=== PATIENT | female | born 1945 | race Caucasian/White ===

== ENCOUNTER 2017-02-07 11:36 | Inpatient (IN) | payer OTHER, MEDICARE ==
[~2017-02-07] VITALS: Ht 160 cm; Wt 64.5 kg
[2017-02-08] MEDS ORDERED: LEVO88TA2 PO (09:10)
[2017-02-08] MEDS ORDERED: GABA300C5 PO (09:10)
[2017-02-11] MEDS ORDERED: SUGAMMADEX SODIUM 200 MG/2 ML VIAL IV PUSH ONE ×2 (06:55)
[2017-02-11] MEDS ORDERED: ACETAMINOPHEN 1000 MG/100 ML VIAL IV ONE (06:56)
[2017-02-11] MEDS ORDERED: LACTATED RINGER'S 1000 ML IV PRN (07:00)
[2017-02-11] MEDS ORDERED: CHLORHEXIDINE GLUCONATE 2 % 1 PACK (2 CLOTHS) TOPICAL PRN (07:00)
[2017-02-11] MEDS ORDERED: ceFAZolin 2 GM PREMIX 50 ML IV SCH (07:00)
[2017-02-11] MEDS ORDERED: METOPROLOL TARTRATE 25 MG TAB PO PRN (07:00)
[2017-02-11] MEDS ORDERED: POVIDONE IODINE 5% (ANTISEPSIS KIT) 4 APPLICATIONS EACH NARE PRN (07:00)
[2017-02-11] MEDS ORDERED: SODIUM CHLORID 0.9% 500 ML IV PRN (07:00)
[2017-02-11] MEDS ORDERED: INSULIN HUMAN REGULAR 1,000 UNITS/10 ML VIAL SQ PRN (07:00)
[2017-02-11] MEDS ORDERED: DEXT 5%-NACL 0.9% 1000 ML INJ 1,000 ML IV SCH (07:00)
[2017-02-11] MEDS ORDERED: NICO14DI T-DERMAL (07:09)
[2017-02-11 07:15] VITALS: BP 114/72; PULSE 90; RESP 16; TEMP 98.6; O2SAT 96
--- NOTE | 2017-02-11 07:49 | PD.HP.UP ---
H&P Update Note The Pre-Admit History and Physical Examination regarding the above named patient was reviewed (including, but not limited to, vital signs, heart, lungs, co-morbid conditions), and upon re-examination it is noted that: the patient's condition has not significantly changed since the last examination. Melissa Linton MD Feb 11, 2017 07:49
[2017-02-11] MEDS ORDERED: fentaNYL CITRATE 250 MCG/5 ML AMP ONE (07:59)
[2017-02-11] MEDS ORDERED: ceFAZolin 2 GM PREMIX 50 ML ONE (07:59)
[2017-02-11] MEDS ORDERED: MIDAZOLAM HCL 2 MG/2 ML VIAL ONE (07:59)
--- NOTE | 2017-02-11 09:25 | PD.OP ---
Operative Report Date of Surgery: Feb 11, 2017 Preoperative Diagnosis: Diverticulitis with colovaginal fistula Postoperative Diagnosis: Diverticulitis with colovaginal fistula and small bladder tumor 0.5 cm in diameter Procedure: Cystoscopy with bilateral ureteral catheter placement and bladder biopsy with fulguration Anesthesia: KAI Surgeon: Edi Hughes Ophthalmologist(s): None Resident Surgeon: None Operation and Findings: 71-year-old female admitted to undergo robotic-assisted laparoscopic colectomy with repair of colovaginal fistula. Request for made for bilateral ureteral catheter insertion. Patient is brought to the operating room and identified by myself as Dina Rehman. She's placed the dorsal lithotomy position, prepped and draped in usual sterile fashion, received preprocedure antibiotics, and general endotracheal tube anesthesia was administered. 22 Pakistani scope was inserted in the bladder and Rico cystoscopy showed a small irregular bladder mass on the posterior wall inferiorly. It was approximately 0.5 cm in diameter. A cold cut biopsy of the area was taken and sent to pathology and the area was then fulgurated. Left ureteral orifice was identified for vaginal catheter was inserted in the left ureteral orifice and it slid up without difficulty. This was repeated on the right side without difficulty. A 16 Pakistani Whitten was inserted into the bladder and the catheters were attached to the Whitten. She tolerated the procedure well. Edi Hughes DO Feb 11, 2017 09:25
[2017-02-11] MEDS ORDERED: ePHEDrine/NS 25 MG/5 ML SYR IV ONE (12:00)
[2017-02-11] MEDS ORDERED: NEOSTIGMINE 3 MG/3 ML SYR IV ONE (12:00)
[2017-02-11] MEDS ORDERED: PHENYLEPH/NS 1000 MCG/10 ML SYR IV ONE (12:00)
[2017-02-11] MEDS ORDERED: PROPOFOL 200 MG/20 ML AMP IV ONE (12:00)
[2017-02-11] MEDS ORDERED: LACTATED RINGER'S 1000 ML INJ 2,000 ML IV ONE (12:00)
[2017-02-11] MEDS ORDERED: ONDANSETRON HCL 4 MG/2 ML VIAL IV PUSH ONE (12:00)
[2017-02-11] MEDS ORDERED: ceFAZolin INJ 1,000 MG VIAL IV ONE (13:00)
[2017-02-11] MEDS ORDERED: NALOXONE HCL 0.4 MG/ML AMP IV PRN (14:15)
[2017-02-11] MEDS ORDERED: ACETAMINOPHEN/HYDROcodone 325 MG/5 MG TAB PO PRN ×2 (14:15→15:00)
[2017-02-11] MEDS ORDERED: POTASSIUM CHLOR 20 MEQ PREMIX 100 ML IV PRN (14:15)
[2017-02-11] MEDS ORDERED: Post-op Orders (for Pharmacy) MISC XX ONE (14:15)
[2017-02-11] MEDS ORDERED: POTASSIUM CHLOR 40 MEQ PREMIX 100 ML IV PRN (14:15)
[2017-02-11] MEDS ORDERED: ACETAMINOPHEN 325 MG TAB PO PRN (14:15)
[2017-02-11] MEDS ORDERED: DO NOT ADM ANY ANTICOAGULANT DRUGS PRN (14:43)
[2017-02-11] MEDS: KETOROLAC TROMETHAMINE 30 MG/ML (IVP) VIAL IVP SCH ×2 (15:00→21:46)
[2017-02-11] MEDS ORDERED: diphenhydrAMINE HCL 50 MG/ML VIAL IV PRN (15:00)
[2017-02-11] MEDS ORDERED: ENALAPRILAT 1.25 MG/ML VIAL IV PRN (15:00)
[2017-02-11] MEDS ORDERED: BENZOCAINE 6 MG/MENTHOL 10 MG LOZENGE BUCCAL PRN (15:00)
[2017-02-11] MEDS ORDERED: SODIUM CHLORIDE 0.9% FLUSH 5 ML FLUSH IVF PRN (15:00)
[2017-02-11] MEDS: SODIUM CHLORIDE 0.9% FLUSH 5 ML FLUSH IVF SCH ×2 (15:00→21:00)
[2017-02-11] MEDS ORDERED: ENALAPRILAT 2.5 MG/2 ML VIAL IV PRN (15:00)
[2017-02-11] MEDS ORDERED: *morphine SULFATE 8 MG/ML PERIprocedure ONLY ONE (15:04)
[2017-02-11 15:15] LABS: AUTOMATED NEUTROPHIL # 13.6 TH/MM3 (1.8-7.7); BASOPHIL % 0.2 % (0.0-2.0); HEMATOCRIT 39.9 % (35.0-46.0); HEMO FLAGS DIFF FINAL; LYMPH % 2.3 % (9.0-44.0); LYMPHOCYTE # 0.3 TH/MM3 (1.0-4.8); MEAN CELL VOLUME 91.9 FL (80.0-100.0); MEAN CORPUSCULAR HEMOGLOBIN 31.1 PG (27.0-34.0); MEAN CORPUSCULAR HGB CONC 33.8 % (32.0-36.0); NEUT % 94.5 % (16.0-70.0); PLATELET COUNT 233 TH/MM3 (150-450); RED BLOOD COUNT 4.35 MIL/MM3 (4.00-5.30); RED CELL DISTRIBUTION WIDTH 13.9 % (11.6-17.2); WHITE BLOOD COUNT 14.4 TH/MM3 (4.0-11.0)
[2017-02-11] MEDS: D5-NS + KCL 20 MEQ INJ 1,000 ML IV SCH ×2 (15:15→21:52)
[2017-02-11] MEDS: MORPHINE SULFATE 30 MG/30 ML PCA IV SCH (15:32)
[2017-02-11] MEDS: PANTOPRAZOLE SODIUM 40 MG VIAL IVP SCH (15:45)
[2017-02-11] MEDS: metroNIDAZOLE 500 MG INJ 100 ML IV SCH ×2 (15:45→23:52)
[2017-02-11] MEDS: NICOTINE 14 MG/24 HR PATCH T-DERMAL SCH (16:00)
[2017-02-11] MEDS: GABAPENTIN 300 MG CAP PO SCH (18:00)
[2017-02-11] MEDS ORDERED: DIMETHICONE/OXYBENZONE/PADMIATE LIP BALM 4.25 GM TOPICAL ONE (18:01)
[2017-02-11] MEDS: REMOVE OLD NICODERM (NICOTINE) PATCH T-DERMAL SCH (21:00)
[2017-02-11 21:12] VITALS: PULSE 85
[2017-02-11 21:30] VITALS: BP 110/73; PULSE 87; RESP 20; TEMP 97.3; O2SAT 93
[2017-02-11] MEDS: PCA - TOTAL MG MORPHINE DELIVERED PER SHIFT SCH (21:50)
[2017-02-11 22:00] VITALS: PULSE 80
[2017-02-11 23:00] VITALS: PULSE 81
[2017-02-11 23:30] VITALS: BP 105/56; PULSE 93; RESP 16; O2SAT 95
[2017-02-12] VITALS (16 sets, daily range): BP systolic 95–144; BP diastolic 48–76; PULSE 72–93; RESP 17–19; TEMP 97.3–98.5; O2SAT 91–97
[2017-02-12] MEDS: D5-NS + KCL 20 MEQ INJ 1,000 ML IV SCH ×2 (04:30→14:11)
[2017-02-12] MEDS: PCA - TOTAL MG MORPHINE DELIVERED PER SHIFT SCH ×3 (06:00→22:00)
[2017-02-12] MEDS: LEVOTHYROXINE SODIUM 88 MCG TAB PO SCH (06:06)
[2017-02-12 07:58] LABS: AUTOMATED NEUTROPHIL # 8.2 TH/MM3 (1.8-7.7); BASOPHIL % 0.2 % (0.0-2.0); EOSINOPHIL % 0.1 % (0.0-4.0); HEMATOCRIT 37.4 % (35.0-46.0); HEMO FLAGS DIFF FINAL; LYMPH % 11.5 % (9.0-44.0); LYMPHOCYTE # 1.2 TH/MM3 (1.0-4.8); MEAN CELL VOLUME 94.2 FL (80.0-100.0); MEAN CORPUSCULAR HEMOGLOBIN 31.2 PG (27.0-34.0); MEAN CORPUSCULAR HGB CONC 33.1 % (32.0-36.0); MONO % 7.2 % (0.0-8.0); PLATELET COUNT 217 TH/MM3 (150-450); RED BLOOD COUNT 3.97 MIL/MM3 (4.00-5.30); WHITE BLOOD COUNT 10.1 TH/MM3 (4.0-11.0)
[2017-02-12 08:18] LABS: BICARBONATE 25.6 MEQ/L (21.0-32.0); POTASSIUM 4.5 MEQ/L (3.5-5.1)
--- NOTE | 2017-02-12 08:57 | HHI.PR ---
Subjective Remarks C/R Surg POD #1 afebrile, VSS UO adeq c/o pain Objective - Vital Signs Date Time Temp Pulse Resp B/P Pulse Ox O2 Delivery O2 Flow Rate FiO2 02/12/17 06:00 74 02/12/17 06:00 18 02/12/17 05:31 96 Nasal Cannula 2.00 02/12/17 04:35 98.1 95/48 Result Diagram: 02/12/17 0712 02/12/17 0712 Objective Remarks PE alert Abd - soft, stoma pink/dark, wounds dry A/P Assessment and Plan Imp: stable post-op OOB decr IVF tx to floor Bebo Wells MD Feb 12, 2017 08:57
[2017-02-12] MEDS: SODIUM CHLORIDE 0.9% FLUSH 5 ML FLUSH IVF SCH ×2 (09:00→19:52)
[2017-02-12] MEDS: GABAPENTIN 300 MG CAP PO SCH ×3 (09:00→17:06)
[2017-02-12] MEDS: PANTOPRAZOLE SODIUM 40 MG VIAL IVP SCH (10:39)
[2017-02-12] MEDS: metroNIDAZOLE 500 MG INJ 100 ML IV SCH (10:40)
[2017-02-12] MEDS: NICOTINE 14 MG/24 HR PATCH T-DERMAL SCH (10:40)
[2017-02-12] MEDS: ONDANSETRON HCL 4 MG/2 ML VIAL IV PRN (10:48)
[2017-02-12] MEDS: HEPARIN SODIUM - SQ 10,000 UNITS/ML VIAL SQ SCH (14:10)
[2017-02-12] MEDS: MORPHINE SULFATE 30 MG/30 ML PCA IV SCH (19:52)
[2017-02-12] MEDS: REMOVE OLD NICODERM (NICOTINE) PATCH T-DERMAL SCH (19:53)
[2017-02-13 00:31] VITALS: BP 148/65; PULSE 93; RESP 18; TEMP 98.8; O2SAT 93
[2017-02-13] MEDS: D5-NS + KCL 20 MEQ INJ 1,000 ML IV SCH ×2 (01:39→17:23)
[2017-02-13] MEDS: HEPARIN SODIUM - SQ 10,000 UNITS/ML VIAL SQ SCH ×2 (01:39→17:23)
[2017-02-13 04:27] VITALS: BP 152/60; PULSE 84; RESP 18; TEMP 98.6; O2SAT 93
[2017-02-13] MEDS: LEVOTHYROXINE SODIUM 88 MCG TAB PO SCH (04:54)
[2017-02-13] MEDS: ONDANSETRON HCL 4 MG/2 ML VIAL IV PRN ×2 (04:57→11:45)
[2017-02-13] MEDS: PCA - TOTAL MG MORPHINE DELIVERED PER SHIFT SCH (05:44)
[2017-02-13 08:00] VITALS: BP 152/71; PULSE 105; RESP 17; TEMP 97.7; O2SAT 90
[2017-02-13] MEDS: SODIUM CHLORIDE 0.9% FLUSH 5 ML FLUSH IVF SCH ×2 (09:00→20:17)
[2017-02-13] MEDS: GABAPENTIN 300 MG CAP PO SCH ×3 (09:00→17:23)
[2017-02-13] MEDS: NICOTINE 14 MG/24 HR PATCH T-DERMAL SCH (09:22)
[2017-02-13] MEDS: PANTOPRAZOLE SODIUM 40 MG VIAL IVP SCH (09:22)
--- NOTE | 2017-02-13 09:29 | HHI.PR ---
Subjective Remarks C/R Surg POD #2 afebrile, VSS UO adeq c/o pain/nausea Objective - Vital Signs Date Time Temp Pulse Resp B/P Pulse Ox O2 Delivery O2 Flow Rate FiO2 02/13/17 08:00 97.7 105 17 152/71 90 02/12/17 08:21 Nasal Cannula 2.50 Result Diagram: 02/12/17 0712 02/12/17 0712 Objective Remarks PE alert Abd - soft, stoma pink, wounds dry min tympany A/P Assessment and Plan Imp: OOB decr IVF dc morphine Bebo Wells MD Feb 13, 2017 09:29
[2017-02-13] MEDS: ACETAMINOPHEN 1000 MG/100 ML VIAL IV SCH ×3 (11:40→22:44)
[2017-02-13 12:00] VITALS: BP 172/70; PULSE 92; RESP 17; TEMP 97.9; O2SAT 90
[2017-02-13 15:56] LABS: BASOPHIL % 0.3 % (0.0-2.0); EOSINOPHIL # 0.1 TH/MM3 (0-0.4); EOSINOPHIL % 1.3 % (0.0-4.0); HEMATOCRIT 39.1 % (35.0-46.0); HEMO FLAGS DIFF FINAL; LYMPH % 14.9 % (9.0-44.0); LYMPHOCYTE # 1.3 TH/MM3 (1.0-4.8); MEAN CELL VOLUME 93.1 FL (80.0-100.0); MEAN CORPUSCULAR HEMOGLOBIN 31.1 PG (27.0-34.0); MEAN CORPUSCULAR HGB CONC 33.4 % (32.0-36.0); MONO % 6.2 % (0.0-8.0); NEUT % 77.3 % (16.0-70.0); PLATELET COUNT 234 TH/MM3 (150-450); RED CELL DISTRIBUTION WIDTH 13.8 % (11.6-17.2); WHITE BLOOD COUNT 9.1 TH/MM3 (4.0-11.0)
[2017-02-13 16:00] VITALS: BP 152/72; PULSE 96; RESP 17; TEMP 97.3; O2SAT 94
[2017-02-13 16:25] LABS: BICARBONATE 27.5 MEQ/L (21.0-32.0); POTASSIUM 4.5 MEQ/L (3.5-5.1)
[2017-02-13] MEDS ORDERED: ZOLPIDEM TARTRATE 5 MG TAB PO PRN (18:00)
[2017-02-13 20:00] VITALS: BP 167/79; PULSE 90; RESP 20; TEMP 98; O2SAT 96
[2017-02-13] MEDS: REMOVE OLD NICODERM (NICOTINE) PATCH T-DERMAL SCH (20:17)
[2017-02-14] VITALS: BP 140/67; PULSE 102; RESP 20; TEMP 98.3; O2SAT 90
[2017-02-14] MEDS: HEPARIN SODIUM - SQ 10,000 UNITS/ML VIAL SQ SCH ×2 (01:27→12:18)
[2017-02-14] MEDS: LEVOTHYROXINE SODIUM 88 MCG TAB PO SCH (04:11)
[2017-02-14] MEDS: ACETAMINOPHEN 1000 MG/100 ML VIAL IV SCH ×2 (04:12→08:00)
[2017-02-14 07:19] LABS: AUTOMATED NEUTROPHIL # 7.8 TH/MM3 (1.8-7.7); BASOPHIL % 0.3 % (0.0-2.0); EOSINOPHIL # 0.2 TH/MM3 (0-0.4); EOSINOPHIL % 1.8 % (0.0-4.0); HEMATOCRIT 40.9 % (35.0-46.0); HEMO FLAGS DIFF FINAL; LYMPH % 11.1 % (9.0-44.0); LYMPHOCYTE # 1.1 TH/MM3 (1.0-4.8); MEAN CELL VOLUME 92.3 FL (80.0-100.0); MEAN CORPUSCULAR HEMOGLOBIN 30.9 PG (27.0-34.0); MEAN CORPUSCULAR HGB CONC 33.4 % (32.0-36.0); MONO % 6.2 % (0.0-8.0); NEUT % 80.6 % (16.0-70.0); PLATELET COUNT 228 TH/MM3 (150-450); RED BLOOD COUNT 4.43 MIL/MM3 (4.00-5.30); RED CELL DISTRIBUTION WIDTH 13.8 % (11.6-17.2); WHITE BLOOD COUNT 9.7 TH/MM3 (4.0-11.0)
[2017-02-14 07:51] LABS: BICARBONATE 26.4 MEQ/L (21.0-32.0); POTASSIUM 4.1 MEQ/L (3.5-5.1)
[2017-02-14 08:00] VITALS: BP 145/79; PULSE 93; RESP 18; TEMP 97.5; O2SAT 93
[2017-02-14] MEDS: PANTOPRAZOLE SODIUM 40 MG VIAL IVP SCH (08:00)
[2017-02-14] MEDS: GABAPENTIN 300 MG CAP PO SCH ×2 (08:00→12:17)
[2017-02-14] MEDS: NICOTINE 14 MG/24 HR PATCH T-DERMAL SCH (08:00)
[2017-02-14] MEDS: D5-NS + KCL 20 MEQ INJ 1,000 ML IV SCH (08:01)
[2017-02-14] MEDS: SODIUM CHLORIDE 0.9% FLUSH 5 ML FLUSH IVF SCH (08:01)
[2017-02-14 08:17] VITALS: O2SAT 92
[2017-02-14 12:00] VITALS: BP 143/71; PULSE 88; RESP 18; TEMP 96.7; O2SAT 97
--- NOTE | 2017-02-14 14:46 | HHI.PR ---
Subjective Remarks POD#3 s/p robotic lar, ayush, diversion Comfortable, wants to go home Objective Vital Signs Date Time Temp Pulse Resp B/P Pulse Ox O2 Delivery O2 Flow Rate FiO2 02/14/17 12:00 96.7 88 18 143/71 97 02/14/17 08:17 92 21 02/14/17 08:00 97.5 93 18 145/79 93 02/14/17 00:00 98.3 102 20 140/67 90 02/13/17 23:14 18 02/13/17 20:00 98.0 90 20 167/79 96 02/13/17 20:00 96 02/13/17 16:00 97.3 96 17 152/72 94 I/O 02/13/17 02/13/17 02/13/17 02/14/17 02/14/17 02/14/17 07:00 15:00 23:00 07:00 15:00 23:00 Intake Total 682 ml 828 ml 737 ml 749 ml 487 ml Output Total 600 ml 1550 ml 2125 ml 300 ml 50 ml Balance 82 ml -722 ml -1388 ml 449 ml 437 ml Intake Oral 240 ml 320 ml 240 ml IV Total 682 ml 588 ml 417 ml 509 ml 487 ml Output Urine Total 600 ml 1550 ml 2075 ml Stool Total 50 ml 300 ml 50 ml # Voids 0 3 # Bowel Movements 0 Result Diagram: 02/14/17 0630 02/14/17 0636 Objective Remarks Abdomen soft, nondistended, mildly tender Stoma pink, incisions clean Assessment and Plan Assessment and Plan Doing well Can go home with [facility] for new stoma Followup with me 3 weeks. Melissa Linton MD Feb 14, 2017 14:46
--- NOTE | 2017-02-14 14:49 | HHI.FF ---
Face to Face Verification Diagnosis: (1) Diverticulitis Home Health Nursing Order: Medical education Wound care and dressing changes I have seen patient Marbella Rehman on 02/14/17. My clinical findings support the need for the requested home health care services because: Deconditioned w/ increased weakness Limited ability to care for self I certify that my clinical findings support that this patient is homebound because: Post-op weakness Melissa Linton MD Feb 14, 2017 14:49
[2017-02-14] MEDS ORDERED: HYDR-3516 PO (14:50)
[2017-02-14 15:00] VITALS: BP 146/75; PULSE 87; RESP 20; TEMP 97; O2SAT 96
--- NOTE | 2017-02-14 18:18 | PD.WCN.NOT ---
Wound Consult Description: Consult placed per Dr Linton for NEW OSTOMY TEACHING of RLQ ileostomy Communicated with: ANTWON Wise Dr Recommendation: Follow up with [facility] after discharge for further Ostomy teaching. Patient had one teaching session approximately 1 hour, with superintendent transportation today prior to discharge. Additional Information: Patient seen on for NEW OSTOMY TEACHING. Patient was sitting up on side of bed when entering room getting ready for discharge with friend at bedside. Appliance was changed by floor RN today. Pouch was removed from lower right abdominal quadrant to visualize ileostomy. Ostomy Type: Ileostomy Date of Surgery: Feb 11, 2017 Complete: Starter kit, Education materials Educated patient on: #1 Drinking plenty of fluids with ileostomy. #2 When to change the appliance and not to leave in place longer than 7 days. #3 What kind of effluent (currently green soft/liquid) she will have coming from her lumen that is noticed at 6 o'clock. #4 How to change pouch and barrier. #5 How to cleanse skin. #6 When and how to empty pouch. #7 Patient demonstrated how to open and close pouch, and how to remove pouch from barrier. #8 Education was also given on the intestinal system, ie. foods easily digested , foods difficult for digestion, and dehydration symptoms. #9 "What to expect after ileostomy surgery" booklet was shown to her for reinforcement of information given today, that she states will read later tonight or tomorrow. #10 Patient stoma was measured at 1 1/4 oval shaped and appliances were ordered for her to go home today in size 1 3/4 moldable. Additional information Appliance was removed from patients right lower quadrant of her abdomen using adhesive remover wipes, for assessment and teaching of ileostomy, prior to discharge today. Stoma was noted to be oval, red, shiny, moist, moderately protruding, budded, lumen @ 6o'clock, functioning with green soft/liquidy effluent and no odor. Mucocutaneous junction is noted with sutures in place otherwise unremarkable. Peristomal skin was assessed. No open areas noted to peristomal skin that was cleansed with water only and allowed to air dry before placing new 2 piece barrier and pouch (taken from ileostomy kit) to patient lower right abdomen. Pouch was then attached at the bottom of the flange with patient fastening the sides and top to close. Patient closed the open ended pouch and education was given as described above. Ileostomy kit was given to patient. 4 ostomy supplies ordered for patient to go home with her size appliance of 1 3/4. Cydney Rosas [facility] Feb 14, 2017 18:18
--- NOTE | 2017-02-15 09:27 | MP ---
cc: JENNIFER RASCON M.D., JOANNE D. M.D. DATE OF SURGERY February 11, 2017 PREOPERATIVE DIAGNOSIS 1. Diverticulitis. 2. Colovaginal fistula. POSTOPERATIVE DIAGNOSIS 1. Diverticulitis. 2. Colovaginal fistula. PROCEDURE 1. Robotic/laparoscopic extensive lysis of adhesions. 2. Robotic low anterior resection. 3. Small bowel resection. 4. Robotic assisted diverting ileostomy. SURGEON Royer [employer]PER[employer] CHASSIS Moe ANESTHESIA General per ET tube. ESTIMATED BLOOD LOSS 150 cc. OPERATIVE INDICATIONS The patient is a 71-year-old female with a history of diverticulitis with colovaginal fistula. OPERATIVE FINDINGS There were some small adhesions of the omentum to the descending colon and wrapped around in the left the abdominal perineal wall. In addition, the patient had adhesions of the small bowel down to the right ovary, the posterior uterus and down to the area of the diverticular phlegmon. She had a large diverticular phlegmon in the mid to lower sigmoid which was folded over just below the rectosigmoid junction where ultimately it was discovered that she actually had a second fistula into the phlegmon at this area. Both ovaries and uterus looked normal. Her liver was visually normal. I did not visualize the gallbladder. OPERATIVE COURSE The patient was brought to the operating room, placed in supine position. After induction of general anesthesia the patient was placed in Ru stirrups and all bony prominences were carefully padded. The skin of the anterior abdominal wall as well as the perineal area was then prepped and draped in usual sterile fashion. Dr. Hughes then came in and performed cystoscopy with placement of bilateral ureteral catheters. Please see his operative note for details. The site was then chosen for the camera being located in the actual umbilical previous incision due to the patient's fairly small body habitus. The #1 port was placed just inside the right anterior superior iliac spine and the assist port was placed just underneath the right costal margin equal distance from the #1 and the camera port. The #5 assist port was placed first under direct vision using a laparoscope. CO2 insufflation was then undertaken and a brief abdominal survey was performed with nothing noted that would preclude the laparoscopic approach. The #1 and the camera port were then placed under direct vision using the laparoscope. The patient's head down and the omentum was pulled up and out of the pelvis. She was noted to have adhesions of the omentum to the left side wall but we continued with our dissection currently. The patient was then noted to have adhesions of the small bowel down into the pelvis but I felt that this could be best dealt with with the robot. The adhesions of the omentum covering the descending colon were then carefully dissected free using electrocautery until I had good visualization of the descending colon. At that point I evaluated and I felt I had adequate length to perform a tension-free anastomosis, so the #2 trocar was placed in the left midclavicular line just above the umbilicus and the #3 port was placed in the left anterior axillary line just below the umbilicus. The robot was then docked and attention was first turned to the small bowel and the pelvis. This was found during dissection to be densely adherent to the right tube and ovary and two different areas of the mid ileum were densely adherent. These were slowly and painstakingly dissected free using electrocautery until we eventually were able to retrieve these out of the pelvis and note was made to check this later though as there was an area on the small bowel that was quite battered. Tube and ovary looked intact and healthy and hemostasis was obtained with electrocautery. Once we were able to retrieve the small bowel up and out of the pelvis it was noted that this area was kind of where the diverticular phlegmon started as well posteriorly. The rectosigmoid colon was retracted down to the left and the perineum window was made posterior to the inferior mesenteric vessels and dissection was continued in this plane till the left ureter was clearly identified and swept away from the specimen. A window was made around the vessels and a white loaded echelon endo stapler was placed across the vessels. This was closed, held for 30 seconds, fired and removed. A small amount of bleeding on the proximal stump was controlled using electrocautery. Dissection then continued in the posterior plane down to the level of the mid rectum and somewhat up to the right and left lateral sides. The lateral peritoneal attachments of the distal descending colon, sigmoid colon were then dissected free until we met our previous dissection. Dissection then continued down into the pelvis and the patient was noted to have the sigmoid colon folded over and adherent down very low on the rectum. Multiple and extensive adhesiolysis was performed in the pelvis, eventually being able to straighten out the colon and finding the phlegmon area with the apparent fistula in the mid to distal sigmoid; however, on further inspection it was noted that just at the level of the rectosigmoid junction or just below there was another area of inflammatory change on the bowel which was quite concerning. I elected to proceed with a more distal resection. The vagina was slowly and painstakingly dissected off the anterior surface of the bowel until we got down to soft healthy bowel with no with inflammatory changes. The mesentery of this was then divided using harmonic scalpel and a blue load echelon endo stapler was placed across the bowel at this level. A second load was necessary to transect the bowel. A 29 EEA stapler was then brought onto the field, placed into the rectum and advanced to the rectal stump without difficulty. It was noted to be fairly low resection margin. Small amount of fibrofatty tissue was cleared of the bowel circumferentially to allow for better anastomosis. Attention was then turned proximally. The distal descending colon was carefully dissected free from the lateral wall and additional dissection was continued posteriorly freeing it from the posterior peritoneum. This appeared fine and I brought it down and it seemed to come nicely down to the rectal stump with plenty of length. All dissection beds were examined. There was noted to still be some oozing down the pelvis particularly on the right side around the right tube and ovary but this was finally controlled using electrocautery. The area of concern on the small bowel was then grasped a locking grasper so that we could located it more easily once we opened. The robot was then undocked. A 6 to 7 cm transverse incision was made along the midportion of the patient's previous abdominoplasty scar. Using electrocautery dissection was carried down to the fascia of the anterior abdominal wall which was split the length of the skin incision. The posterior fascia closed. Perineum was then divided as well. A wound protector was then placed and initially we addressed the small bowel. This was grasped, pulled up and out of the incision and after evaluation I did feel that the bowel was compromised to the point where resection would be prudent. The mesentery was cleared proximally and distally and above the level of the proposed resection. The LUIZA stapler blue load was placed across the bowel proximal and distally and the intervening mesentery was serially divided and ligated using 0 Vicryl ties. The antimesenteric corners of the staple line were then removed. One limb of the staple was placed down each limb of the bowel. This was closed along the antimesenteric border, fired and removed. The resulting enterotomy was closed transversely using TX 60 stapling device. Simple stay suture was placed at the distal end of the anastomosis using 3-0 Vicryl and the mesenteric defect was closed in a running fashion using 3-0 Vicryl and the remainder of the small bowel was run and showed no significant abnormalities. The bowel was replaced back into the peritoneal cavity. The proximal stapled end of the colon was then grasped and pulled up and out through the incision and a site was chosen for proximal division of the bowel just above the area of the inflammatory changes where the bowel was soft and appeared healthy. A window in the mesentery was made and a pursestring stapling device was placed across the bowel at this level. The distal bowel was cleared with Yvon clamp, the bowel was amputated and the intervening mesentery was then serially divided and ligated using 0 Vicryl ties. Specimen was taken to back table, it was later opened and the area of possibly two different fistula openings were confirmed. The anvil from the 29 EEA was then placed into the cut end of the bowel and the previously placed pursestring suture was then secured. This was then reduced back into the peritoneal cavity. The posterior fascia of the incision was then closed in running fashion using #1 PDS and the anterior fascia was closed in a running fashion using #1 PDS. A OpSite was placed over the incision and CO2 insufflation was then resumed. The 29 EEA stapler was advanced through the anus and up to the rectal stump. The spike was advanced just anterior to the staple line. The anvil was to the spike and being careful that the bowel was not twisted the stapler was closed, held for 30 seconds, fired and removed. At this point the bowel was noted to be just a little bit more tension than I would like and so the lateral peritoneal attachments were dissected further up the descending colon and posteriorly until we had much more tension-free anastomosis. Saline was placed into the pelvis and air was placed into the anus until tension was noted on the anastomosis. There were noted to be a few just tiny bubbles. However, with the low level of the anastomosis I had already considered a proximal diversion and this indefinitely made this more appealing. The air was desufflated to the extent possible and the saline was suctioned out of the pelvis. A site was then chosen for proximal diverting just above the previous resection. Two laparoscopic clips were placed distally. One laparoscopic clip was placed proximally and the bowel was grasped with a locking grasper. The fascia at the 10, 12 trocar sites were then closed using 0 Vicryl suture and the crossbow device. These sutures were placed but not tied until CO2 insufflation was removed. At this point all dissection beds were examined. No sign of any significant bleeding was noted. CO2 insufflation was removed. The skin at the transverse incision was then closed in a running subcuticular fashion using 3-0 Vicryl and the previously placed fascial sutures were closed. A site was chosen for the ileostomy just to the right, still trying to maintain the same abdominoplasty incision. A 2 cm incision was made and using electrocautery the preperitoneal fat was removed down to the level of the fascia. A 1.5 cm incision was made in the fascia and dissection continued until the peritoneal cavity was opened. The previously chosen was then grasped and pulled up and out of the pelvis. The distal end was oriented in a more caudal position. A window was made in the mesentery and the distal end was stapled off using a TX 60 stapling device. The stoma was then opened and matured in a typical Tash fashion using 3-0 Vicryl. The remainder of the trocar sites were closed in an interrupted subcuticular fashion using 3-0 Vicryl. Steri-Strips and sterile dressing was applied. A stoma appliance was placed. The right ureteral catheter was removed. All sponge, needle and instrument counts were correct and the patient was returned to the post anesthesia care in stable condition. MD ISRAEL Mario/CHEYENNE /2:14 PM /9:16 AM
== END 2017-02-14 18:23 | disposition home health service (06) | DRG 330 ==
LOC: HSDI 02-11 06:33 → HCIS 02-11 20:44 → N07B 02-12 13:23
PROVIDERS: ADMIT Colon & Rectal Surgery; ATTEND Colon & Rectal Surgery
PROC: 0DBP4ZZ Excision of Rectum, Percutaneous Endoscopic Approach (ICD-10-PCS; 2017-02-11)
PROC: 0D1B4Z4 Bypass Ileum to Cutaneous, Percutaneous Endoscopic Approach (ICD-10-PCS; 2017-02-11)
PROC: 0TBB8ZX Excision of Bladder, Via Natural or Artificial Opening Endoscopic, Diagnostic (ICD-10-PCS; 2017-02-11)
PROC: 0T5B8ZZ Destruction of Bladder, Via Natural or Artificial Opening Endoscopic (ICD-10-PCS; 2017-02-11)
PROC: 8E0W4CZ Robotic Assisted Procedure of Trunk Region, Percutaneous Endoscopic Approach (ICD-10-PCS; 2017-02-11)
PROC: 0T788DZ Dilation of Bilateral Ureters with Intraluminal Device, Via Natural or Artificial Opening Endoscopic (ICD-10-PCS; 2017-02-11)
PROC: 0DB84ZZ Excision of Small Intestine, Percutaneous Endoscopic Approach (ICD-10-PCS; principal; 2017-02-11 08:14)
PROC: 0DNE4ZZ Release Large Intestine, Percutaneous Endoscopic Approach (ICD-10-PCS; 2017-02-11 08:14)
DX: K57.92 Diverticulitis of intestine, part unspecified, without perforation or abscess without bleeding (principal); N82.3 Fistula of vagina to large intestine; D49.4 Neoplasm of unspecified behavior of bladder; K66.0 Peritoneal adhesions (postprocedural) (postinfection)
CPT/HCPCS: 36415; 71020; 76937; 80048; 80053; 81001; 85025; 85610; 85730; 86850; 86900; 86901; 87077; 87086; 87186; 88305; 88307; 88309; 93005; 94150; C9113; J0131; J0690; J1644; J1885; J2250; J2270; J2370; J2405; J2710; J3010; J3480; J7120

== ENCOUNTER → 2017-02-08 | Outpatient (CLI) | payer OTHER ==
[~2017-02-08] MED LIST: GABA300C5 PO; HYDR-3516 PO; LEVO50TA4 PO; LEVO88TA2 PO; LYRI50CA PO; MIRTA15 PO; NICO14DI T-DERMAL
--- NOTE | 2017-02-08 10:07 | RADRPT ---
EXAM DATE/TIME: 02/08/2017 09:40 [place] COMPARISON: CHEST PA & LAT, June 07, 2016, 12:50. EXTERNAL COMPARISON : [facility] INDICATIONS : Evaluate for pneumonia,pneumothorax or communicable disease. pre op for bowel surgery. MEDICAL HISTORY : Diverticulitis. SURGICAL HISTORY : Fusion, lumbar. ENCOUNTER: Initial ACUITY: 1 day PAIN SCORE: 0/10 LOCATION: Bilateral chest FINDINGS: Moderate scoliosis present. No focal consolidation or significant effusion. No pneumothorax. Heart si ze within normal limits. CONCLUSION: 1. No active disease. Moderate scoliosis. Hesham Raymundo MD on February 08, 2017 at 10:03 Board Certified Radiologist. This report was verified electronically.
[2017-02-08 10:36] LABS: BACTERIA, URINE FEW /hpf; BLOOD, URINE SMALL (NEG); GLUCOSE,URINE NEG (NEG); KETONE, URINE NEG (NEG); NITRITE,URINE NEG (NEG); SQUAMOUS EPITHELIAL CELL URINE <1 /hpf (0-5); TRANSITIONAL EPI CELLS, URINE <1 /hpf; URINE COLOR LIGHT-YELLOW (YELLW/STRAW)
[2017-02-08 10:36] LABS: APTT (PATIENT) 27.5 SEC (24.3-30.1); PROTHROMBIN TIME - PATIENT 10.6 SEC (9.8-11.6)
[2017-02-08 10:37] LABS: AUTOMATED NEUTROPHIL # 6.1 TH/MM3 (1.8-7.7); BASOPHIL # 0.1 TH/MM3 (0-0.2); BASOPHIL % 1.1 % (0.0-2.0); EOSINOPHIL # 0.1 TH/MM3 (0-0.4); EOSINOPHIL % 0.7 % (0.0-4.0); HEMATOCRIT 46.1 % (35.0-46.0); HEMO FLAGS DIFF FINAL; LYMPH % 21.2 % (9.0-44.0); LYMPHOCYTE # 1.8 TH/MM3 (1.0-4.8); MEAN CELL VOLUME 92.9 FL (80.0-100.0); MEAN CORPUSCULAR HEMOGLOBIN 30.7 PG (27.0-34.0); MONO % 5.9 % (0.0-8.0); NEUT % 71.1 % (16.0-70.0); PLATELET COUNT 291 TH/MM3 (150-450); RED BLOOD COUNT 4.97 MIL/MM3 (4.00-5.30); RED CELL DISTRIBUTION WIDTH 14.3 % (11.6-17.2); WHITE BLOOD COUNT 8.6 TH/MM3 (4.0-11.0)
[2017-02-08 10:42] LABS: COMMENT (UR) CULTURE INDICATED; CULTURE IF INDICATED CULTURE INDICATED
[2017-02-08 10:49] LABS: ALT (GPT) 19 U/L (10-53)
[2017-02-08 10:52] LABS: ALKALINE PHOSPHATASE 166 U/L (45-117); TOTAL BILIRUBIN ADULT 0.5 MG/DL (0.2-1.0)
[2017-02-08 10:59] LABS: ANION GAP 7 MEQ/L (5-15); AST (GOT) 19 U/L (15-37); BICARBONATE 27.7 MEQ/L (21.0-32.0); BLOOD UREA NITROGEN 20 MG/DL (7-18); CHLORIDE 101 MEQ/L (98-107); GLOMERULAR FILTRATION RATE 65 ML/MIN (>89); GLUCOSE,FASTING 84 MG/DL (74-99); SODIUM (NA) 136 MEQ/L (136-145)
[2017-02-08 11:01] LABS: POTASSIUM 4.8 MEQ/L (3.5-5.1)
--- NOTE | 2017-02-09 11:52 | EKG ---
Date Performed: 02/08/2017 Time Performed: 09:03:03 PTAGE: 71 years EKG: Sinus rhythm NORMAL ECG NO PREVIOUS TRACING DOCTOR: Arben Villa Interpretating Date/Time 02/09/2017 11:50:29
== END ==
LOC: CPRE 08:43
PROVIDERS: ATTEND Colon & Rectal Surgery
DX: Z01.812 Encounter for preprocedural laboratory examination (principal); Z01.810 Encounter for preprocedural cardiovascular examination; Z01.811 Encounter for preprocedural respiratory examination; N32.1 Vesicointestinal fistula; K57.92 Diverticulitis of intestine, part unspecified, without perforation or abscess without bleeding; N39.0 Urinary tract infection, site not specified; B96.20 Unspecified Escherichia coli [E. coli] as the cause of diseases classified elsewhere
CPT/HCPCS: 36415; 71020; 80053; 81001; 85025; 85610; 85730; 87077; 87086; 87186; 93005

== ENCOUNTER → 2017-05-05 | Outpatient (CLI) | payer OTHER ==
[~2017-05-05] MED LIST changes: +AMIT25TA9 PO; -LEVO50TA4 PO; -LYRI50CA PO
[2017-05-05 11:23] LABS: AUTOMATED NEUTROPHIL # 5.1 TH/MM3 (1.8-7.7); BASOPHIL # 0.1 TH/MM3 (0-0.2); BASOPHIL % 0.9 % (0.0-2.0); EOSINOPHIL # 0.1 TH/MM3 (0-0.4); HEMOGLOBIN 14.2 GM/DL (11.6-15.3); LYMPH % 20.9 % (9.0-44.0); LYMPHOCYTE # 1.5 TH/MM3 (1.0-4.8); MEAN CORPUSCULAR HEMOGLOBIN 31.5 PG (27.0-34.0); MEAN CORPUSCULAR HGB CONC 33.9 % (32.0-36.0); MEAN PLATELET VOLUME 8.8 FL (7.0-11.0); MONO % 7.1 % (0.0-8.0); MONOCYTE # 0.5 TH/MM3 (0-0.9); NEUT % 70.1 % (16.0-70.0); PLATELET COUNT 285 TH/MM3 (150-450); RED BLOOD COUNT 4.52 MIL/MM3 (4.00-5.30); RED CELL DISTRIBUTION WIDTH 14.1 % (11.6-17.2); WHITE BLOOD COUNT 7.2 TH/MM3 (4.0-11.0)
[2017-05-05 11:29] LABS: INTERNATIONAL NORMALIZED RATIO 0.9 RATIO; PROTHROMBIN TIME - PATIENT 10.4 SEC (9.8-11.6)
[2017-05-05 11:44] LABS: ALBUMIN 3.4 GM/DL (3.4-5.0); AST (GOT) 18 U/L (15-37); BICARBONATE 23.1 MEQ/L (21.0-32.0); BLOOD UREA NITROGEN 17 MG/DL (7-18); CALCIUM 9.4 MG/DL (8.5-10.1); CHLORIDE 112 MEQ/L (98-107); CREATININE 0.72 MG/DL (0.50-1.00); GLOMERULAR FILTRATION RATE 80 ML/MIN (>89); GLUCOSE,FASTING 86 MG/DL (74-99); SODIUM (NA) 141 MEQ/L (136-145)
[2017-05-05 11:46] LABS: BACTERIA, URINE OCC /hpf; BILIRUBIN, URINE NEG (NEG); BLOOD, URINE TRACE (NEG); CALCIUM OXALATE CRYSTALS,URINE FEW /hpf; GLUCOSE,URINE NEG (NEG); HYALINE CAST, URINE 17 /lpf (RARE); KETONE, URINE NEG (NEG); MUCUS URINE FEW /lpf (OCC); NITRITE,URINE NEG (NEG); PH, URINE 5.5 (5.0-8.5); SQUAMOUS EPITHELIAL CELL URINE 2 /hpf (0-5); URINE COLOR YELLOW (YELLW/STRAW); URINE LEUKOCYTE ESTERASE MOD (NEG)
[2017-05-05 11:47] LABS: ALKALINE PHOSPHATASE 207 U/L (45-117); ALT (GPT) 32 U/L (10-53); TOTAL BILIRUBIN ADULT 0.5 MG/DL (0.2-1.0); TOTAL PROTEIN 7.3 GM/DL (6.4-8.2)
== END ==
LOC: CPRE 09:48
PROVIDERS: ATTEND Colon & Rectal Surgery
DX: Z01.812 Encounter for preprocedural laboratory examination (principal); K57.32 Diverticulitis of large intestine without perforation or abscess without bleeding
CPT/HCPCS: 36415; 80053; 81001; 85025; 85610; 85730

== ENCOUNTER 2017-05-09 11:32 | Inpatient (IN) | payer OTHER, MEDICARE ==
[~2017-05-09] VITALS: Ht 160 cm; Wt 57.2 kg
[~2017-05-09 11:32] MED LIST changes: -NICO14DI T-DERMAL
[2017-05-09] MEDS ORDERED: INSULIN HUMAN REGULAR 1,000 UNITS/10 ML VIAL SQ PRN (12:15)
[2017-05-09] MEDS ORDERED: LACTATED RINGER'S 1000 ML IV PRN (12:15)
[2017-05-09] MEDS ORDERED: POVIDONE IODINE 5% (ANTISEPSIS KIT) 4 APPLICATIONS EACH NARE PRN (12:15)
[2017-05-09] MEDS ORDERED: ceFAZolin 1,000 MG/NS 100 ML IV SCH ×2 (12:15)
[2017-05-09] MEDS ORDERED: METRONIDAZOLE 500 MG/100 ML ISONTONIC SOLN IV SCH (12:15)
[2017-05-09] MEDS ORDERED: METOPROLOL TARTRATE 25 MG TAB PO PRN (12:15)
[2017-05-09] MEDS ORDERED: SODIUM CHLORID 0.9% 500 ML IV PRN (12:15)
[2017-05-09] MEDS ORDERED: CHLORHEXIDINE GLUCONATE 2 % 1 PACK (2 CLOTHS) TOPICAL PRN (12:15)
[2017-05-09] MEDS: DEXT 5%-NACL 0.9% 1000 ML INJ 1,000 ML IV SCH ×2 (12:30→20:09)
[2017-05-09] MEDS ORDERED: ACETAMINOPHEN 1000 MG/100 ML 100 ML IV ONE (13:01)
[2017-05-09] MEDS ORDERED: LIDOCAINE 0.5%/EPINEPHrine 1:200,000 SOLN 50 ML VIAL ONE (13:02)
[2017-05-09] MEDS ORDERED: FAMOTIDINE 20 MG/2 ML VIAL ONE (13:02)
[2017-05-09] MEDS ORDERED: DO NOT ADM ANY ANTICOAGULANT DRUGS PRN (14:50)
[2017-05-09] MEDS: KETOROLAC TROMETHAMINE 30 MG/ML (IVP) VIAL IVP SCH ×2 (15:00→20:10)
[2017-05-09] MEDS ORDERED: POTASSIUM CHLOR 20 MEQ PREMIX 100 ML IV PRN ×3 (15:00→16:00)
[2017-05-09] MEDS ORDERED: MORPHINE SULFATE 30 MG/30 ML PCA IV SCH (15:00)
[2017-05-09] MEDS ORDERED: ACETAMINOPHEN 325 MG TAB PO PRN (15:00)
[2017-05-09] MEDS ORDERED: NALOXONE HCL 0.4 MG/ML AMP IV PUSH PRN (15:00)
[2017-05-09] MEDS ORDERED: ONDANSETRON HCL 4 MG/2 ML VIAL IV PUSH PRN (15:00)
[2017-05-09] MEDS ORDERED: Post-op Orders (for Pharmacy) MISC XX ONE (15:00)
[2017-05-09] MEDS ORDERED: ENALAPRILAT 1.25 MG/ML VIAL IV PUSH PRN (15:00)
[2017-05-09] MEDS: SODIUM CHLORIDE 0.9% FLUSH 5 ML FLUSH IVF SCH ×2 (15:00→20:08)
[2017-05-09] MEDS ORDERED: SODIUM CHLORIDE 0.9% FLUSH 5 ML FLUSH IVF PRN (15:00)
[2017-05-09] MEDS ORDERED: BENZOCAINE 6 MG/MENTHOL 10 MG LOZENGE BUCCAL PRN (15:00)
[2017-05-09] MEDS ORDERED: ACETAMINOPHEN/HYDROcodone 325 MG/5 MG TAB PO PRN ×2 (15:00)
[2017-05-09] MEDS ORDERED: ENALAPRILAT 2.5 MG/2 ML VIAL IV PUSH PRN (15:00)
[2017-05-09] MEDS: PCA - TOTAL MG MORPHINE DELIVERED PER SHIFT SCH ×2 (15:00→22:00)
[2017-05-09] MEDS ORDERED: diphenhydrAMINE HCL 50 MG/ML VIAL IV PUSH PRN (15:00)
[2017-05-09] MEDS ORDERED: *RESP: ALBUTEROL 2.5 MG/3 ML NEB (PRN) PERIprocedural Use ONLY NEB ONE (15:18)
[2017-05-09] MEDS ORDERED: D5-NS + KCL 20 MEQ INJ 1,000 ML IV SCH (15:30)
[2017-05-09] MEDS ORDERED: *morphine SULFATE 8 MG/ML PERIprocedure ONLY ONE (15:35)
--- NOTE | 2017-05-09 15:41 | MP ---
cc: JENNIFER RASCON M.D., JOANNE D. M.D. DATE OF SURGERY: 05/09/2017 PREOPERATIVE DIAGNOSIS 1. Diverticulitis. 2. Colovaginal fistula. POSTOPERATIVE DIAGNOSIS 1. Diverticulitis. 2. Colovaginal fistula. PROCEDURE Resection with reanastomosis of ileostomy. SURGEON Royer. ANESTHESIA General per ET tube. ESTIMATED BLOOD LOSS 50 cc. OPERATIVE INDICATIONS The patient is a 71-year-old female who is 3 months out from robotic low anterior resection for a local vaginal fistula. OPERATIVE FINDINGS The patient had some minor adhesions of the small bowel to the edge of the fascia circumferentially. OPERATIVE COURSE The patient was brought to the operating room and placed in the supine position. After induction of general anesthesia the stoma was then sutured closed. The skin of the anterior abdominal wall was then prepped and draped in the usual sterile fashion. A lenticular-shaped incision was made transversely around the ileostomy. Using electrocautery dissection was carried down to the fascia of the anterior abdominal wall until the fascia was visualized circumferentially. The small bowel was then gently dissected free from the edge of the fascia using combination electrocautery and sharp dissection. Eventually we were able to prolapsed out the ileostomy and the bowel attached to it. There was one small loop of extra bowel that was gently dissected free from the mesentery of the ileostomy. A site was chosen for proximal division of the bowel. The mesentery was cleared at this level and a LUIZA stapler blue load was placed across the bowel both proximally and distally, fired and removed. The intervening mesentery was serially divided and ligated using 0 Vicryl ties. The antimesenteric corners of the staple line were then removed. One limb of the gastrointestinal stapler was placed down each limb of the bowel. This was closed along the antimesenteric border, fired and removed, thus creating an enteroenterotomy. The resulting enterotomy was closed transversely with the TX 60 stapling device. A simple stay suture was placed at the distal end of the anastomosis using 3-0 Vicryl. The anastomosis was palpated, found to be widely patent. The bowel was then prolapsed back into the peritoneal cavity. The posterior fascia of the anterior abdominal wall was closed in a running fashion using #1 PDS and the anterior fascia was closed in a running fashion using #1 PDS. The wound was copiously irrigated with warm normal saline. The subcutaneous was re-approximated in an interrupted fashion using 3-0 Vicryl and the skin was closed in a running subcuticular fashion using 3-0 Vicryl. Steri-Strips and sterile dressings were then applied. All sponge, needle and instrument counts were correct. The patient was returned to the post-anesthesia care unit in stable condition. MD ISRAEL Mario/FLEX /2:51 PM /3:31 PM
[2017-05-09] MEDS ORDERED: *ONDANSETRON 4 MG VIAL PERIprocedural Use ONLY ONE (15:54)
[2017-05-09] MEDS ORDERED: D5-NS + KCL 20 MEQ INJ 1,000 ML ONE (16:13)
[2017-05-09 16:44] LABS: AUTOMATED NEUTROPHIL # 9.9 TH/MM3 (1.8-7.7); BASOPHIL # 0.1 TH/MM3 (0-0.2); BASOPHIL % 0.6 % (0.0-2.0); HEMATOCRIT 41.5 % (35.0-46.0); HEMO FLAGS DIFF FINAL; LYMPH % 7.4 % (9.0-44.0); LYMPHOCYTE # 0.8 TH/MM3 (1.0-4.8); MEAN CORPUSCULAR HEMOGLOBIN 30.8 PG (27.0-34.0); MEAN CORPUSCULAR HGB CONC 33.5 % (32.0-36.0); MONO % 1.2 % (0.0-8.0); NEUT % 90.8 % (16.0-70.0); PLATELET COUNT 280 TH/MM3 (150-450); RED BLOOD COUNT 4.51 MIL/MM3 (4.00-5.30); RED CELL DISTRIBUTION WIDTH 13.6 % (11.6-17.2); WHITE BLOOD COUNT 10.9 TH/MM3 (4.0-11.0)
[2017-05-09 16:58] LABS: POTASSIUM 3.7 MEQ/L (3.5-5.1)
[2017-05-09 20:00] VITALS: BP 113/55; PULSE 85; RESP 16; TEMP 96.9; O2SAT 94
[2017-05-09 20:20] VITALS: O2SAT 96
[2017-05-09] MEDS: metroNIDAZOLE 500 MG INJ 100 ML IV SCH (23:16)
[2017-05-10] VITALS: BP 103/57; PULSE 78; RESP 16; TEMP 96.8; O2SAT 94
[2017-05-10] MEDS: KETOROLAC TROMETHAMINE 30 MG/ML (IVP) VIAL IVP SCH ×3 (01:50→15:55)
[2017-05-10] MEDS: DEXT 5%-NACL 0.9% 1000 ML INJ 1,000 ML IV SCH ×2 (01:51→13:55)
[2017-05-10] MEDS: metroNIDAZOLE 500 MG INJ 100 ML IV SCH ×2 (05:13→15:05)
[2017-05-10] MEDS: PCA - TOTAL MG MORPHINE DELIVERED PER SHIFT SCH ×2 (05:13→13:53)
[2017-05-10 08:00] VITALS: BP 121/61; PULSE 95; RESP 20; TEMP 97; O2SAT 95
[2017-05-10 08:00] LABS: AUTOMATED NEUTROPHIL # 8.5 TH/MM3 (1.8-7.7); BASOPHIL # 0.1 TH/MM3 (0-0.2); BASOPHIL % 0.5 % (0.0-2.0); EOSINOPHIL % 0.1 % (0.0-4.0); HEMATOCRIT 33.1 % (35.0-46.0); HEMO FLAGS DIFF FINAL; LYMPH % 9.1 % (9.0-44.0); LYMPHOCYTE # 0.9 TH/MM3 (1.0-4.8); MEAN CORPUSCULAR HEMOGLOBIN 31.1 PG (27.0-34.0); MEAN CORPUSCULAR HGB CONC 33.5 % (32.0-36.0); MONO % 6.1 % (0.0-8.0); NEUT % 84.2 % (16.0-70.0); PLATELET COUNT 243 TH/MM3 (150-450); RED BLOOD COUNT 3.56 MIL/MM3 (4.00-5.30); RED CELL DISTRIBUTION WIDTH 13.7 % (11.6-17.2)
[2017-05-10 08:27] LABS: BICARBONATE 21.1 MEQ/L (21.0-32.0)
[2017-05-10] MEDS: SODIUM CHLORIDE 0.9% FLUSH 5 ML FLUSH IVF SCH (08:31)
[2017-05-10 09:00] VITALS: O2SAT 93
[2017-05-10] MEDS ORDERED: PANTOPRAZOLE SODIUM 40 MG VIAL IVP SCH (09:00)
--- NOTE | 2017-05-10 09:27 | HHI.PR ---
Subjective Remarks POD#1 s/p ileostomy closure slight emesis this am Objective Vital Signs Date Time Temp Pulse Resp B/P (MAP) Pulse Ox O2 Delivery O2 Flow Rate FiO2 05/10/17 08:00 97.0 95 20 121/61 (81) 95 05/10/17 05:13 14 05/10/17 00:00 96.8 78 16 103/57 (72) 94 05/09/17 22:00 14 05/09/17 20:20 96 21 05/09/17 20:00 96.9 85 16 113/55 (74) 94 05/09/17 17:38 16 05/09/17 16:50 89 14 107/56 (73) 97 Nasal Cannula 2 05/09/17 16:30 81 14 108/59 (75) 97 Nasal Cannula 2 05/09/17 16:15 85 14 109/59 (76) 97 Nasal Cannula 2 05/09/17 16:00 84 14 119/60 (79) 98 Nasal Cannula 2 05/09/17 15:45 82 14 126/62 (83) 99 Nasal Cannula 2 05/09/17 15:40 16 05/09/17 15:30 81 14 121/66 (84) 100 Nasal Cannula 2 05/09/17 15:15 92 14 132/73 (92) 97 Nasal Cannula 2 05/09/17 14:54 97.8 105 14 167/85 (112) 100 Nasal Cannula 2 05/09/17 12:15 97.3 104 18 106/69 (81) 98 I/O 05/09/17 05/09/17 05/09/17 05/10/17 05/10/17 05/10/17 07:00 15:00 23:00 07:00 15:00 23:00 Intake Total 700 ml 120 ml 1894 ml 120 ml Output Total 5 ml Balance 695 ml 120 ml 1894 ml 120 ml Intake Oral 120 ml 120 ml IV Total 1894 ml Other 700 ml Output Estimated Blood Loss 5 ml # Voids 0 Result Diagram: 05/10/17 0710 05/10/17 0710 Objective Remarks Abdomen soft, nondistended, tender dressing c/d/i Assessment and Plan Assessment and Plan If tolerates lunch, home this afternoon Melissa Linton MD May 10, 2017 09:27
[2017-05-10 12:00] VITALS: BP 117/56; PULSE 81; RESP 20; TEMP 97.1; O2SAT 95
[2017-05-10 13:53] VITALS: RESP 16
[2017-05-10] MEDS ORDERED: HEPARIN SODIUM - SQ 10,000 UNITS/ML VIAL SQ SCH (14:00)
== END 2017-05-10 16:57 | disposition home or self-care (01) | DRG 331 ==
LOC: HSDI 11:32 → INTOOBSV 11:32 → OBSVTOIN 11:32 → HSDI 17:01 → N07B 17:01
PROVIDERS: ADMIT Colon & Rectal Surgery; ATTEND Colon & Rectal Surgery
PROC: 0DBB0ZZ Excision of Ileum, Open Approach (ICD-10-PCS; principal; 2017-05-09 13:47)
DX: Z43.2 Encounter for attention to ileostomy (principal); F32.9 Major depressive disorder, single episode, unspecified; E03.9 Hypothyroidism, unspecified; F17.210 Nicotine dependence, cigarettes, uncomplicated; Z85.3 Personal history of malignant neoplasm of breast
CPT/HCPCS: 80048; 85025; 86850; 86900; 86901; 88304; 88307; 94150; C9113; J0131; J0690; J1644; J1885; J2270; J2405; J3480; J7042; J7120; J7613